=== PATIENT | female | born 1995 ===

== ENCOUNTER → 2020-10-23 12:34 | Outpatient (CLI) | payer OTHER, MEDICAID, SELFPAY ==
[2020-10-23 15:57] LABS: Urine N gonorrhoeae NOT DETECTED
[2020-10-23 16:33] LABS: Urine Chlamydia NOT DETECTED
== END ==
PROVIDERS: Referring Provider Family Medicine; Visit Provider Family Medicine
DX: Z34.02 Encounter for supervision of normal first pregnancy, second trimester (principal)
CPT/HCPCS: 87491; 87591

== ENCOUNTER → 2020-10-23 12:54 | Outpatient (CLI) | payer OTHER, MEDICAID, SELFPAY ==
[2020-10-25 18:24] LABS: AFP, Serum 56.1 ng/mL (.); Calc Gestational Age Ultrasound (.); Estriol, Free 2.87 ng/mL (.); Inhibin A, Dimeric 196.16 pg/mL (.); Maternal Ethnicity Other (.); Maternal Weight 169 lbs (.); Results Report (.); hCG, Serum 17238 mIU/mL (.)
[2020-11-05 12:52] LABS: Test Results See interpretation. (.)
[2020-11-05 12:56] LABS: hCG, MoM 0.73
[2020-11-05 12:58] LABS: Inhibin A, MoM 1.27
[2020-11-05 12:59] LABS: OSBR Risk 1 IN 6704
[2020-11-05 13:01] LABS: Number of Fetuses 1
== END ==
PROVIDERS: PCP Family Medicine; Referring Provider Family Medicine; Visit Provider Family Medicine
DX: Z34.02 Encounter for supervision of normal first pregnancy, second trimester (principal); Z3A.18 18 weeks gestation of pregnancy
CPT/HCPCS: 36415; 82105; 82677; 84702; 86336; 87491; 87591

== ENCOUNTER → 2020-10-24 16:58 | Outpatient (CLI) | payer OTHER, MEDICAID, SELFPAY ==
[2020-10-24 18:03] LABS: Appearance Urine UA CLEAR; Bilirubin Urine UA NEGATIVE (NEGATIVE); Color Urine UA YELLOW; Glucose Urine UA TRACE g/dL (Negative); Ketones Urine UA NEGATIVE (NEGATIVE); Leukocyte Esterase Urine UA NEGATIVE (NEGATIVE); Nitrite Urine UA NEGATIVE (Negative); Occult Blood Urine UA TRACE-LYSED (Negative); Protein Urine UA NEGATIVE (Negative); Specific Gravity Urine UA <=1.005 (1.000-1.035); Urobilinogen Urine UA 0.2 E.U./dL (0.2)
[2020-10-24 18:07] LABS: pH Urine UA 6.5 (4.5-8.0)
[2020-10-24 18:12] LABS: Bacteria Urine Few (2-10); Culture Indicated Urine Cult Not Indicated; RBC Urine 0-1/HPF (0-5/HPF); Squamous Epithelial Cell Urine 1-5 /HPF (0-5/HPF); WBC Urine 0-1/HPF (0-5/HPF)
== END ==
PROVIDERS: PCP Family Medicine; Referring Provider Family Medicine; Visit Provider Family Medicine
DX: N39.0 Urinary tract infection, site not specified (principal)
CPT/HCPCS: 81001

== ENCOUNTER → 2020-11-06 14:17 | Outpatient (CLI) | payer OTHER, MEDICAID, SELFPAY ==
--- NOTE | 2020-11-06 14:18 | DI.US.S_ITS ---
PROCEDURE: US OB >= 14 WEEKS FETUS INDICATIONS: ANATOMY OUTSIDE/PRIOR DATING DATA: First dating scan (date and location): November 06, 2020 . Estimated date of delivery (SHARONA) from first dating scan: March 14, 2021 . TECHNIQUE: Real-time scanning was performed of the fetus, with image documentation and biometric measurements. Endovaginal scanning: Not performed COMPARISON: None. FINDINGS: General: A single living intrauterine gestation is present. Presentation: Breech. Placenta: Placental position is right fundal , without previa. Amniotic fluid index: Four-quadrant LYNDON appears visibly adequate with largest vertical pocket measuring 5.1 cm. heart rate: 153 beats per minute. Maternal cervical canal: 3.0 cm long. Normal lower limit is 2.5 cm. biometrics: Biparietal diameter: 5.4 cm, correlating with 22 weeks and 3 days Head circumference: 19.6 cm, correlating with 21 weeks and 5 days Abdominal circumference: 17.0 cm, correlating with 22 weeks and 0 days Femur length: 3.4 cm, correlating with 20 weeks and 4 days Estimated gestational age from initial scan: not applicable. Composite gestational age from present scan: 21 weeks and 5 days Estimated weight and percentile: 424 g . Estimated weight percentile not calculated. Measurement variability for biometric dating: +/- 7 days from 14 weeks to 15 weeks 6 days gestation, +/- 10 days from 16 weeks to 21 weeks 6 days gestation, +/- 2 weeks from 22 weeks to 27 weeks 6 days gestation, +/- 3 weeks for 28 weeks gestation or later. weight reference: 4500 g or EFW >90/95% is considered macrosomia or large for gestational age. EFW <10% is small for gestational age. EFW 5% or less is considered intra-uterine growth restriction. Anatomic survey: Neuro: Ventricles are non-dilated at less than 10 mm. Cisterna magna is normal at 3-11 mm. Cerebellum is normal in size and morphology. Nuchal skin fold: Normal at less than 6 mm between 14-21 weeks gestational age. Face: Nose and lips, facial profile are normal. Spine: No evidence for spina bifida. Heart: 4-chambered heart is present, with normal ventricular outflow tracts. Incidental note of a 1.5 mm echogenic focus within the left ventricle. Diaphragm: Diaphragm is intact. Stomach: Left-sided stomach is present. Kidneys: No hydronephrosis. Normal is less than 5 mm in 2nd trimester, less than 7 mm in 3rd trimester. Cord: 3-vessel cord has orthotopic insertion. Bladder: Normal in size. Extremities: All 4 extremities identified. IMPRESSION: 1. Single living intrauterine gestation with an estimated sonographic gestational age of approximately 21 weeks and 5 days. This correlates with a estimated dated delivery of approximately March 14, 2021. 2. Small echogenic focus identified within the left ventricle which is a nonspecific finding and can be seen in to 20% of normal fetuses. This likely represents the normal papillary muscle or cordae tendineae. Recommend correlation with maternal risk factors and further evaluation as clinically appropriate. Otherwise, unremarkable routine second trimester anatomic screening survey. Dictated by: Sedrick Ojeda M.D. on 11/06/2020 at 16:30 Approved by: Sedrick Ojeda M.D. on 11/06/2020 at 16:38
== END ==
PROVIDERS: PCP Family Medicine; Referring Provider Family Medicine; Visit Provider Family Medicine
DX: Z3A.21 21 weeks gestation of pregnancy (principal)
CPT/HCPCS: 76811

== ENCOUNTER → 2021-01-01 15:34 | Outpatient (CLI) | payer OTHER, MEDICAID, SELFPAY ==
[2021-01-01 16:24] LABS: Bilirubin Urine UA NEGATIVE (NEGATIVE); Color Urine UA YELLOW; Glucose Urine UA TRACE g/dL (Negative); Ketones Urine UA NEGATIVE (NEGATIVE); Leukocyte Esterase Urine UA NEGATIVE (NEGATIVE); Nitrite Urine UA NEGATIVE (Negative); Occult Blood Urine UA 1+ (Negative); Protein Urine UA TRACE (Negative); Urobilinogen Urine UA 0.2 E.U./dL (0.2)
[2021-01-01 16:46] LABS: Creatinine Urine Random 98.1 mg/dL; Protein (Total) Urine Random 27 mg/dL (0-12); Protein Creatinine Ratio Urine 0.27 GRAM/24H
[2021-01-01 16:56] LABS: Appearance Urine UA Slightly Cloudy
[2021-01-01 16:57] LABS: Amorphous Sediment Urine 1+; Bacteria Urine Many (>30); Culture Indicated Urine Specimen Cultured; Mucus Urine 1+ (Negative); RBC Urine 0-1/HPF (0-5/HPF); Squamous Epithelial Cell Urine 1-5 /HPF (0-5/HPF); WBC Urine 1-5/HPF (0-5/HPF)
[2021-01-01 17:15] LABS: Add Manual Diff / Slide Review NO; Basophils Absolute Auto 0 /uL (0-100); Basophils Percent Auto 0.3 % (0-2); Eosinophils Absolute Auto 200 /uL (0-450); Hematocrit 34.2 % (36-46); Hemoglobin 11.6 g/dL (12.0-16.0); Lymphocytes Absolute Auto 2300 /uL (1100-4500); Lymphocytes Percent Auto 25.7 % (25-40); Mean Corpuscular HGB Conc 33.8 % (30-36); Mean Corpuscular Hemoglobin 29.4 PG (26-34); Mean Corpuscular Volume 86.9 fL (80-100); Monocytes Absolute Auto 700 /uL (0-900); Monocytes Percent Auto 8.4 % (3-14); Neutrophils Absolute Auto 5600 /uL (1500-7000); Neutrophils Percent Auto 63.6 % (50-75); Platelet Count 278 X10^3/uL (150-400); Red Blood Cell Count 3.93 X10^6/uL (4.0-5.2); Red Cell Distribution Width 15.5 % (11.6-14.8); White Blood Cell Count 8.8 X10^3/uL (4.5-11.0)
[2021-01-01 17:46] LABS: Alanine Aminotransferase 29 IU/L (<35); Albumin 3.4 g/dL (3.5-5.0); Albumin Globulin Ratio 1.2 (1.0-2.8); Alkaline Phosphatase 87 U/L (38-126); Aspartate Aminotransferase 31 IU/L (14-36); Bilirubin Total 0.2 mg/dL (0.2-1.3); Blood Urea Nitrogen 3 mg/dL (7-17); Calcium 9.4 mg/dL (8.4-10.2); Carbon Dioxide 23 mmol/L (22-32); Chloride 102 mmol/L (98-107); Estimated Glomerular Filt Rate > 60.0 mL/min (>60); GTT (PREG) 1 Hour PP 50gm Dose 204 mg/dL (76-139); Globulin 2.9 g/dL (1.7-4.1); Glucose 204 mg/dL (70-100); HEMOLYSIS < 15 (0-50); Potassium 2.9 mmol/L (3.4-5.1); Sodium 134 mmol/L (137-145); Total Protein 6.3 g/dL (6.3-8.2)
== END ==
PROVIDERS: PCP Family Medicine; Referring Provider Family Medicine; Visit Provider Family Medicine
DX: O13.9 Gestational [pregnancy-induced] hypertension without significant proteinuria, unspecified trimester (principal); Z3A.26 26 weeks gestation of pregnancy
CPT/HCPCS: 36415; 80053; 81001; 82570; 82950; 84156; 85025; 87077; 87086; 87186

== ENCOUNTER → 2021-01-13 15:37 | Outpatient (CLI) | payer OTHER, MEDICAID, SELFPAY | PROVIDERS: PCP Family Medicine; Referring Provider Family Medicine; Visit Provider Family Medicine | DX: O23.40 Unspecified infection of urinary tract in pregnancy, unspecified trimester (principal) | CPT/HCPCS: 82948; 87077; 87086; 87186 ==

== ENCOUNTER → 2021-01-29 15:38 | Outpatient (CLI) | payer OTHER, MEDICAID, SELFPAY ==
[2021-01-29 16:09] LABS: Add Manual Diff / Slide Review NO; Basophils Absolute Auto 0 /uL (0-100); Basophils Percent Auto 0.3 % (0-2); Eosinophils Absolute Auto 200 /uL (0-450); Eosinophils Percent Auto 2.1 % (2-4); Hematocrit 33.8 % (36-46); Hemoglobin 11.4 g/dL (12.0-16.0); Lymphocytes Absolute Auto 2500 /uL (1100-4500); Lymphocytes Percent Auto 31.2 % (25-40); Mean Corpuscular HGB Conc 33.8 % (30-36); Mean Corpuscular Hemoglobin 29.2 PG (26-34); Mean Corpuscular Volume 86.5 fL (80-100); Monocytes Absolute Auto 800 /uL (0-900); Monocytes Percent Auto 10.1 % (3-14); Neutrophils Absolute Auto 4600 /uL (1500-7000); Neutrophils Percent Auto 56.3 % (50-75); Platelet Count 252 X10^3/uL (150-400); Red Blood Cell Count 3.91 X10^6/uL (4.0-5.2); Red Cell Distribution Width 16.3 % (11.6-14.8); White Blood Cell Count 8.2 X10^3/uL (4.5-11.0)
[2021-01-29 16:20] LABS: Alanine Aminotransferase 36 IU/L (<35); Albumin 3.5 g/dL (3.5-5.0); Albumin Globulin Ratio 1.1 (1.0-2.8); Alkaline Phosphatase 110 U/L (38-126); Aspartate Aminotransferase 35 IU/L (14-36); BUN Creatinine Ratio 6.3 (6-22); Bilirubin Total 0.2 mg/dL (0.2-1.3); Blood Urea Nitrogen 4 mg/dL (7-17); Calcium 9.3 mg/dL (8.4-10.2); Carbon Dioxide 24 mmol/L (22-32); Chloride 105 mmol/L (98-107); Estimated Glomerular Filt Rate > 60.0 mL/min (>60); Globulin 3.2 g/dL (1.7-4.1); Glucose 90 mg/dL (70-100); HEMOLYSIS < 15 (0-50); Potassium 3.2 mmol/L (3.4-5.1); Sodium 137 mmol/L (137-145); Total Protein 6.7 g/dL (6.3-8.2)
[2021-01-29 16:29] LABS: Appearance Urine UA CLEAR; Bilirubin Urine UA NEGATIVE (NEGATIVE); Color Urine UA YELLOW; Glucose Urine UA NEGATIVE (Negative); Ketones Urine UA NEGATIVE (NEGATIVE); Leukocyte Esterase Urine UA NEGATIVE (NEGATIVE); Nitrite Urine UA NEGATIVE (Negative); Occult Blood Urine UA TRACE-LYSED (Negative); Protein Urine UA TRACE (Negative); Urobilinogen Urine UA 0.2 E.U./dL (0.2)
[2021-01-29 17:33] LABS: Creatinine Urine Random 89.1 mg/dL; Protein (Total) Urine Random 30 mg/dL (0-12); Protein Creatinine Ratio Urine 0.33 GRAM/24H
[2021-01-29 17:57] LABS: Bacteria Urine None Seen; Culture Indicated Urine Cult Not Indicated; RBC Urine 0-1/HPF (0-5/HPF); Squamous Epithelial Cell Urine 1-5 /HPF (0-5/HPF); WBC Urine 0-1/HPF (0-5/HPF)
== END ==
PROVIDERS: PCP Family Medicine; Referring Provider Family Medicine; Visit Provider Family Medicine
DX: O13.9 Gestational [pregnancy-induced] hypertension without significant proteinuria, unspecified trimester (principal)
CPT/HCPCS: 36415; 80053; 81001; 82570; 84156; 85025

== ENCOUNTER 2021-01-29 16:05 | Outpatient (CLI) | payer OTHER, MEDICAID, SELFPAY ==
--- NOTE | 2021-01-29 | DI.US.S_ITS ---
PROCEDURE: US OB LIMITED INDICATIONS: gestational HTN, gestational DM OUTSIDE/PRIOR DATING DATA: Last menstrual period (LMP): Unknown. LMP-based estimated date of delivery (SHARONA): Not applicable. First dating scan (date and location): 11/06/20. Estimated date of delivery (SHARONA) from first dating scan: 03/14/21. The calculations are made using the 2nd trimester ultrasound derived SHARONA of 03/14/21. TECHNIQUE: Real-time scanning was performed of the fetus, with image documentation. Endovaginal scanning: None COMPARISON: None. FINDINGS: A single living intrauterine gestation is present. Presentation: Cephalic. Placenta: Placental position is right fundal, without previa. Amniotic fluid index: 12.9 cm, normal range is 5-24 cm. Single deepest vertical pocket is 5.4 cm. heart rate: 130 beats per minute. Maternal cervical canal: 3.2 cm long. Normal lower limit is 2.5 cm. Biparietal diameter 8.4 cm, 34 weeks, 0 days Head circumference 30.6 cm, 34 weeks, one day Abdominal circumference 29.7 cm 33 weeks, five days Femur length 6.5 cm, 33 weeks, four days Estimated weight 2259 g, 42nd percentile Previously assigned gestational age 33 weeks, five days Gestational age from today's study 33 weeks, six days IMPRESSION: 1. Single live intrauterine with appropriate growth since the prior study. 2. Amniotic fluid volume within normal limits. 3. Preliminary report conveyed by the manager research development to the ordering provider. Dictated by: Syl Dumont M.D. on 01/29/2021 at 18:19 Approved by: Syl Dumont M.D. on 01/29/2021 at 18:23
--- NOTE | 2021-01-29 17:14 | P.TNLD_ITS ---
Visit Information Visit Information Date of evaluation: 01/29/21 Primary OB Provider: Loretta Taveras Reason for Evaluation: Yes non-stress test non-stress test reason: hypertension/pre-eclampsia Comments/Additional reasons for admission: 25-year-old at 32 weeks and 5 days with elevated blood pressures in clinic. Denies headache, vision changes, edema right upper quadrant pain. further complicated by diet-controlled gestational diabetes. Vital Signs Vital Signs: Blood pressure 126/67, 134/85, 130/69 [facility] Medical History (Updated 01/30/21 @ 07:19 by Loretta Taveras DO) GDM, class A1 Gestational hypertension Family History Mother Hypertension Hyperlipidemia Father No problems noted. Grandmother No problems noted. Grandfather Cancer Grandmother No problems noted. Grandfather No problems noted. Social History marital status: unmarried,living together (Life partner will be moving here from [facility] [address]. ) household members: family (Stays with her cousin. ) lives independently: No caregiver/support person: No housing: apartment pets and animals: No education level: college (Some college courses. ) occupational status: employed ([employer]. ) current occupational exposures/hazards: No jessica/gnosticism: Caodaism special jessica needs: No seatbelt use: always do you feel safe at home: Yes Smoking Status: Never smoker second hand exposure: No alcohol intake: former (Pre-: weekends or days off only. ) substance use type: does not use during the past year weight has: remained stable well-balanced diet: about half the time (Encouraged online nutrition class. ) daily servings fruits/ve-4 caffeine: No (Rare soda. ) Type(s) of exercise: walking (Constant during 8 hr shift. ) and normal ROM and activity frequency: daily duration: other Objective Imaging US - abdomen: Radiologist's impression: PROCEDURE:? US OB LIMITED ? INDICATIONS:? gestational HTN, gestational DM ? OUTSIDE/PRIOR DATING DATA:? Last menstrual period (LMP):? Unknown.? LMP-based estimated date of delivery (SHARONA):? Not applicable.? First dating scan (date and location):? 11/06/20.? Estimated date of delivery (SHARONA) from first dating scan:? 03/14/21. The calculations are made using the 2nd trimester ultrasound derived SHARONA of 03/14/21.? ? TECHNIQUE: Real-time scanning was performed of the fetus, with image documentation.? Endovaginal scanning:? None ? COMPARISON:? None. ? FINDINGS:? A single living intrauterine gestation is present.? Presentation:? Cephalic.? Placenta:? Placental position is right fundal, without previa.? Amniotic fluid index:? 12.9 cm, normal range is 5-24 cm. Single deepest vertical pocket is 5.4 cm.? ? heart rate:? 130 beats per minute.? Maternal cervical canal:? 3.2 cm long.? Normal lower limit is 2.5 cm. Biparietal diameter 8.4 cm, 34 weeks, 0 days Head circumference 30.6 cm, 34 weeks, one day Abdominal circumference 29.7 cm 33 weeks, five days Femur length 6.5 cm, 33 weeks, four days Estimated weight 2259 g, 42nd percentile Previously assigned gestational age 33 weeks, five days Gestational age from today's study 33 weeks, six days ? ? IMPRESSION:? 1. Single live intrauterine with appropriate growth since the prior study. 2. Amniotic fluid volume within normal limits. 3. Preliminary report conveyed by the recruiting specialist to the ordering provider. ? ? Dictated by: Syl Dumont M.D. on 01/29/2021 at 18:19 ? ? Approved by: Syl Dumont M.D. on 01/29/2021 at 18:23 ? Evaluation Evaluation Baseline heart rate: 140 Variability: Moderate (11-25) monitor accelerations: Present Monitor Decelerations: Absent Category of Tracing: Reactive Diagnosis, Plan/Disposition Final Diagnosis (1) Gestational hypertension: Status: Acute (2) GDM, class A1: Status: Acute (3) 32 weeks gestation of : Status: Acute Plan/Disposition Plan: 25-year-old at 32 weeks and 5 days gestation with gestational hypertension and well controlled GDM A1. All blood pressures normal in the center and she is asymptomatic. CBC and CMP normal today however urine protein creatinine ratio returned at 0.33. Patient has a container for a 24 hour urine that she needs to complete. EFW today was 42nd percentile and LYNDON 12.9. Will plan for twice weekly NST and weekly LYNDON. Referral placed to maternal medicine for recommendations for her . OB Disposition: home
== END 2021-01-29 17:49 | disposition home or self-care (01) ==
LOC: OB 01-30 14:05
PROVIDERS: PCP Family Medicine; Referring Provider Family Medicine; Visit Provider Family Medicine
DX: O13.3 Gestational [pregnancy-induced] hypertension without significant proteinuria, third trimester (principal); O24.410 Gestational diabetes mellitus in pregnancy, diet controlled; Z3A.32 32 weeks gestation of pregnancy
CPT/HCPCS: 36415; 59025; 76815; 80053; 81001; 82570; 84156; 85025; G0378; G0379

== ENCOUNTER → 2021-02-10 14:40 | Outpatient (CLI) | payer OTHER, MEDICAID, SELFPAY ==
[2021-02-10 16:24] LABS: Collection Time Urine 24 Hours; Protein (Total) Urine Random 41 mg/dL (0-12); Total Protein 24 Hour Urine 574 mg/day (42-225); Total Volume Urine 1400 mL
== END ==
PROVIDERS: PCP Family Medicine; Referring Provider Family Medicine; Visit Provider Family Medicine
DX: O13.9 Gestational [pregnancy-induced] hypertension without significant proteinuria, unspecified trimester (principal)
CPT/HCPCS: 84156

== ENCOUNTER → 2021-02-27 10:25 | Outpatient (CLI) | payer OTHER, MEDICAID, SELFPAY ==
[2021-02-27 19:07] LABS: Strep Grp B PCR NEG for Grp B Strep
== END ==
PROVIDERS: PCP Family Medicine; Visit Provider Family Medicine
DX: Z3A.36 36 weeks gestation of pregnancy (principal)
CPT/HCPCS: 87081; 87653

== ENCOUNTER 2021-02-27 11:29 | Inpatient (IN) | payer OTHER, MEDICAID, SELFPAY ==
--- NOTE | 2021-02-27 11:37 | DI.US.S_ITS ---
PROCEDURE: US OB LIMITED INDICATIONS: PRE-ECLAMPSIA. GROWTH AND BIOPHYSICAL. OUTSIDE/PRIOR DATING DATA: Last menstrual period (LMP): Unknown LMP-based estimated date of delivery (SHARONA): Unknown First dating scan (date and location): 11/06/2020 Estimated date of delivery (SHARONA) from first dating scan: 03/14/2021. TECHNIQUE: Real-time scanning was performed of the fetus, with image documentation and biometric measurements. Biophysical profile was also obtained. The COMPARISON: [facility], OB LIMITED, 01/29/2021, 17:24. FINDINGS: General: A single living intrauterine gestation is present. Presentation: Vertex Placenta: Placental position is right fundal, without previa. Amniotic fluid index: 7 cm, normal range is 5-24 cm. Single deepest vertical pocket is 4.9 cm. heart rate: 137 beats per minute. Maternal cervical canal: Not well seen. biometrics: Biparietal diameter: 8.9 cm, 36 weeks, 1 day Head circumference: 33.2 cm, 37 weeks, 6 days Abdominal circumference: 35.0 cm, 38 weeks, 6 days Femur length: 7.1 cm, 36 weeks, 2 days. Clinically estimated gestational age: 37 weeks, 6 days Composite gestational age from present scan: 37 weeks, 2 days Estimated weight and percentile: 3322 g, 61% Biophysical profile: Tone: 2 points. Movement: 2 points. Respiration: 2 points. Largest pocket of fluid: 2 points. IMPRESSION: 1. Single live intrauterine with fetus in vertex presentation. heart rate is 137 beats per minute. Normal amount of amniotic fluid. Normal growth with estimated weight at 61st percentile. 2. biophysical profile score is 8/8. We strive to produce accurate, complete, and clear reports of imaging services. To assist us in improving patient care, this report was composed using standard report templates and voice recognition software. Therefore, it may contain abnormal punctuation, insertions and/or omissions. Occasional wrong-word or sound-alike substitutions may occur. Though we review the report and make efforts to correct it, we do recommend that the report be read carefully in proper context to recognize any text inaccuracies. Dictated by: Ayo Espinoza M.D. on 02/27/2021 at 12:42 Approved by: Ayo Espinoza M.D. on 02/27/2021 at 12:49
[2021-02-27 12:00] LABS: Add Manual Diff / Slide Review NO; Basophils Absolute Auto 0 /uL (0-100); Basophils Percent Auto 0.4 % (0-2); Eosinophils Absolute Auto 100 /uL (0-450); Eosinophils Percent Auto 1.6 % (2-4); Hematocrit 33.1 % (36-46); Lymphocytes Absolute Auto 2400 /uL (1100-4500); Lymphocytes Percent Auto 31.3 % (25-40); Mean Corpuscular HGB Conc 33.3 % (30-36); Mean Corpuscular Hemoglobin 27.9 PG (26-34); Mean Corpuscular Volume 83.8 fL (80-100); Monocytes Absolute Auto 700 /uL (0-900); Monocytes Percent Auto 8.6 % (3-14); Neutrophils Absolute Auto 4500 /uL (1500-7000); Neutrophils Percent Auto 58.1 % (50-75); Platelet Count 259 X10^3/uL (150-400); Red Blood Cell Count 3.96 X10^6/uL (4.0-5.2); Red Cell Distribution Width 16.6 % (11.6-14.8); White Blood Cell Count 7.7 X10^3/uL (4.5-11.0)
[2021-02-27 12:24] LABS: Alanine Aminotransferase 39 IU/L (<35); Albumin 3.3 g/dL (3.5-5.0); Albumin Globulin Ratio 1.1 (1.0-2.8); Alkaline Phosphatase 139 U/L (38-126); Aspartate Aminotransferase 45 IU/L (14-36); BUN Creatinine Ratio 7.8 (6-22); Bilirubin Total 0.3 mg/dL (0.2-1.3); Blood Urea Nitrogen 4 mg/dL (7-17); Calcium 9.3 mg/dL (8.4-10.2); Carbon Dioxide 24 mmol/L (22-32); Chloride 106 mmol/L (98-107); Estimated Glomerular Filt Rate > 60.0 mL/min (>60); Globulin 3.1 g/dL (1.7-4.1); Glucose 93 mg/dL (70-100); HEMOLYSIS 24 (0-50); Potassium 3.5 mmol/L (3.4-5.1); Sodium 136 mmol/L (137-145); Total Protein 6.4 g/dL (6.3-8.2)
--- NOTE | 2021-02-27 13:05 | PM.OBHP.IH.1 ---
OB HPI Date/Time Date of admission: 02/27/21 Date Patient Seen: 02/27/21 Time Patient Seen: 12:50 History of Present Condition Chief complaint: SHARONA Calculator Estimated Delivery Date Method Current WG Current Estimate 03/18/21 LMP (Uncertain) 37w 2d Other Estimates 03/21/21 Ultrasound #1 36w 6d : 1 Para: 0 Narrative: 25-year-old at 37 weeks and 2 days by LMP confirmed with first-trimester ultrasound. Care has been a bit fragmented. She had a lapse in care from 32-37 weeks due to phone issues. She was found to meet criteria for preeclampsia by blood pressure and elevated 24 hour urine at 34 weeks but did not follow-up in clinic or for testing. Today she presented to clinic after a welfare check by police at home. Initial blood pressure in clinic was markedly elevated and she was sent to the center. She denies headaches, vision changes or right upper quadrant pain. She has had swelling in her legs. Reports good movement and denies leaking or bleeding. She was diagnosed with gestational diabetes after 1 hour GTT of 204. Blood sugars reportedly have been in the 80s fasting and 140s to 150s postprandial however she has not been seen for the last month in clinic. also complicated by shingles at 26 weeks treated with Valtrex. She also had a UTI then reacted to Keflex so did not complete treatment. UTI was later treated with nitrofurantoin but she was not seen in follow-up for test of care. care: limited care, initiated at week # (18), number of visits (7) and pounds weight gain (67) Dating criteria OB: LMP confirmed by 1st trimester US Ultrasounds: normal 1st trimester US and normal mid trimester US Obstetrical complications: gestational diabetes and preeclampsia Indications Indication for induction OB: gestational HTN/pre-eclampsia Preadmission Labs Last OB Lab Results: Blood Type O Positive 02/27/21 13:40 02/27/21 Antibody Screen Negative 02/27/21 13:40 02/27/21 Hematocrit 33.1 % (36-46) L 02/27/21 11:50 02/27/21 Hemoglobin 11.0 g/dL (12.0-16.0) L 02/27/21 11:50 02/27/21 Glucose 1 Hour 204 mg/dL (76-139) H 01/01/21 15:46 01/01/21 Group B Streptococcus (PCR) Pending 02/27/21 10:25 02/27/21 -: Chlamydia screen: negative, Gonorrhea screen: negative and Urine: positive (E coli) Genetic Screens: Quad screen: Normal External Labs -: Urine: positive (E coli) Evaluation Evaluation Baseline heart rate: 135 Variability: Moderate (11-25) monitor accelerations: Present Monitor Decelerations: Absent Contraction Frequency (minutes): 5 Status: Category l Dilation (cm): 1 Effacement (%): 25 Dilation: 1-2 cm Effacement: 0-30% station: -3 Position of cervix: mid Consistency: medium Rodriguez score: 3 PFSH Medical History GDM, class A1 Gestational hypertension Family History Mother Hypertension Hyperlipidemia Father No problems noted. Grandmother No problems noted. Grandfather Cancer Grandmother No problems noted. Grandfather No problems noted. Social History marital status: unmarried,living together (Life partner will be moving here from [facility]. ) household members: family (Stays with her cousin. ) lives independently: No caregiver/support person: No housing: apartment pets and animals: No education level: college (Some college courses. ) occupational status: employed ([employer]. ) current occupational exposures/hazards: No jessica/uatsdin: Orthodoxy special jessica needs: No seatbelt use: always do you feel safe at home: Yes Smoking Status: Never smoker second hand exposure: No alcohol intake: former (Pre-: weekends or days off only. ) substance use type: does not use during the past year weight has: remained stable well-balanced diet: about half the time (Encouraged online nutrition class. ) daily servings fruits/ve-4 caffeine: No (Rare soda. ) Type(s) of exercise: walking (Constant during 8 hr shift. ) and normal ROM and activity frequency: daily duration: other Meds Home Medications and Allergies Home Medications Medication Instructions Recorded Confirmed Type prenat.vits,jessica,gox-xnij-amyab 1 tab PO DAILY 10/22/20 10/23/20 History pyridoxine (vitamin B6) 100 mg 50 mg PO ONCE 10/22/20 10/23/20 History tablet blood sugar diagnostic (Blood #100 ea 01/14/21 Rx Glucose Test) blood-glucose meter (Blood Glucose #1 ea 01/14/21 Rx Monitoring) nitrofurantoin macrocrystal 100 mg 100 mg PO BID #14 cap 01/20/21 01/20/21 Rx capsule lancets #100 ea 01/22/21 Rx Allergies Allergy/AdvReac Type Severity Reaction Status Date / Time cephalexin [From Keflex] Allergy Intermediate Rash Verified 10/23/20 12:05 Review of Systems Review of Systems ROS: Yes All systems reviewed with the patient and are negative except as otherwise documented OB Exam Narrative Exam Narrative: T 36.1 Initial BP 160s/90-100s, down to 140/80s after nifedipine 10 mg HENMT Head: normal to inspection Mouth: oral mucosae normal Eyes General: appearance normal, both eyes and all related structures Resp Effort & Inspection: normal respiratory effort Cardio Rate: regular rate Extremities Lower extremity: Yes edema DTR's: Rt Patellar: 3+ and Lt Patellar: 3+ Presentation: vertex Estimated Weight (lbs): 7 Objective Labs Result Diagrams: 02/27/21 11:50 02/27/21 11:50 Labs: Laboratory Results - last 24 hr 02/27/21 02/27/21 11:50 11:50 WBC 7.7 RBC 3.96 L Hgb 11.0 L Hct 33.1 L MCV 83.8 MCH 27.9 MCHC 33.3 RDW 16.6 H Plt Count 259 Neut % (Auto) 58.1 Lymph % (Auto) 31.3 [place] % (Auto) 8.6 Eos % (Auto) 1.6 L Baso % (Auto) 0.4 Neut # (Auto) 4500 Lymph # (Auto) 2400 [place] # (Auto) 700 Eos # (Auto) 100 Baso # (Auto) 0 Sodium 136 L Potassium 3.5 Chloride 106 Carbon Dioxide 24 BUN 4 L Creatinine 0.51 L Estimated GFR > 60.0 BUN/Creatinine Ratio 7.8 Glucose 93 Calcium 9.3 Total Bilirubin 0.3 AST 45 H ALT 39 H Alkaline Phosphatase 139 H Total Protein 6.4 Albumin 3.3 L Globulin 3.1 Albumin/Globulin Ratio 1.1 Assessment and Plan Assessment and Plan Assessment and Plan narrative: 25-year-old at 37 weeks and 2 days with preeclampsia without severe features. Diagnosis made by hypertension in third trimester and elevated 24 hour urine protein. She had a lapse in care from 32 weeks until now due to phone issues per patient. She also has gestational diabetes with unknown control given lapse in care. Per patient fasting sugars in the 80s and postprandials generally 140s or lower. Recommended induction now due to pre-eclampsia without severe features. BP improved nicely after one dose of nifedipine 10 mg. Will start labetalol 100 mg BID. Care discussed with Dr. Jacobs. Will hold off on magnesium for now and monitor for development of severe features. Plan for Cervidil followed by pitocin. Epidural upon request. Patient was incidentally found to be COVID positive on admission screening. She is asymptomatic. Discussed masking when and in close contact with .
[2021-02-27] MEDS: NIFEdipine 10 MG CAPSULE PO (13:28)
[2021-02-27 14:13] LABS: COVID19 -Nasal RAPID POSITIVE (Negative)
[2021-02-27] MEDS: DINOPROSTONE VAG (CERVIDIL) 10 MG VAG (15:35)
[2021-02-27 18:33] VITALS: BP 130/94
[2021-02-27] MEDS: LACTATED RINGERS 1,000 ML 100 ML IV (18:50)
[2021-02-27 19:04] VITALS: BP 142/85; PULSE 92
[2021-02-27] MEDS: LABETALOL 100 MG TABLET PO (19:04)
[2021-02-27 19:30] VITALS: BP 160/77; PULSE 104
[2021-02-27] MEDS: ACETAMINOPHEN 325 MG TABLET 650 MG PO (20:18)
[2021-02-28 06:14] LABS: Add Manual Diff / Slide Review NO; Basophils Absolute Auto 100 /uL (0-100); Eosinophils Absolute Auto 100 /uL (0-450); Eosinophils Percent Auto 1.5 % (2-4); Hematocrit 33.1 % (36-46); Lymphocytes Absolute Auto 1900 /uL (1100-4500); Mean Corpuscular HGB Conc 33.2 % (30-36); Mean Corpuscular Hemoglobin 27.7 PG (26-34); Mean Corpuscular Volume 83.6 fL (80-100); Monocytes Absolute Auto 900 /uL (0-900); Monocytes Percent Auto 9.8 % (3-14); Neutrophils Absolute Auto 6000 /uL (1500-7000); Neutrophils Percent Auto 66.7 % (50-75); Platelet Count 261 X10^3/uL (150-400); Red Blood Cell Count 3.96 X10^6/uL (4.0-5.2); Red Cell Distribution Width 16.7 % (11.6-14.8)
[2021-02-28 06:26] LABS: Alanine Aminotransferase 38 IU/L (<35); Albumin 3.5 g/dL (3.5-5.0); Alkaline Phosphatase 143 U/L (38-126); Aspartate Aminotransferase 38 IU/L (14-36); BUN Creatinine Ratio 11.9 (6-22); Bilirubin Total 0.3 mg/dL (0.2-1.3); Blood Urea Nitrogen 7 mg/dL (7-17); Calcium 9.4 mg/dL (8.4-10.2); Carbon Dioxide 23 mmol/L (22-32); Chloride 107 mmol/L (98-107); Estimated Glomerular Filt Rate > 60.0 mL/min (>60); Globulin 3.5 g/dL (1.7-4.1); Glucose 95 mg/dL (70-100); HEMOLYSIS < 15 (0-50); Potassium 3.3 mmol/L (3.4-5.1); Sodium 138 mmol/L (137-145)
[2021-02-28] MEDS: OXYTOCIN PREMIX 30 UNIT/500 ML PLAST..BAG IV (08:30)
[2021-02-28 08:45] VITALS: BP 132/89
[2021-02-28] MEDS: LABETALOL 100 MG TABLET PO ×2 (08:45→19:19)
--- NOTE | 2021-02-28 08:45 | PM.OBPNLAB ---
Date/Time Date Patient Seen: 02/28/21 Time Patient Seen: 08:15 Pain Control Pain control: tolerating well Comments: Denies complaints this morning. Denies headaches, abdominal pain or vision changes. Blood pressures overnight were up and down but not requiring additional medication. She was feeling crampy however cramping has subsided somewhat since Cervidil was removed at 3:30 a.m.. Pelvic Exam Dilation (cm): 1 Effacement (%): 70 station: -3 Contractions Monitor mode: External Contraction pattern: Irregular Status status: Category l Heart Rate Baseline: 140 Monitor Accelerations: Present Monitor Decelerations: Absent Monitor Variability: Moderate Assessment and Plan Assessment: induction ongoing Comments: 25-year-old at 37 weeks and 2 days with preeclampsia without severe features. She received Cervidil overnight. Rodriguez score of 6 this morning. She has been judi spontaneously since Cervidil was removed so will do a trial of Pitocin. Epidural upon request. Blood pressure reasonably well controlled with labetalol 100 mg b.i.d.. She has not needed additional medication for severe range pressures. She remains asymptomatic. Transaminases actually improved this morning compared to admission. Fasting blood sugar was 80 today.
--- NOTE | 2021-02-28 12:06 | PM.OBPNLAB ---
Date/Time Date Patient Seen: 02/28/21 Time Patient Seen: 11:30 Pain Control Pain control: tolerating well Comments: She is feeling crampy and rates her pain a 4/10. Pelvic Exam Dilation (cm): 2 Effacement (%): 70 station: -2 Contractions Monitor mode: External Pitocin rate (mU/min): 18 Contraction frequency (min): 3 Contraction pattern: Regular Status status: Category l Heart Rate Baseline: 130 Monitor Accelerations: Present Monitor Decelerations: Absent Monitor Variability: Moderate Assessment and Plan Assessment: induction ongoing Comments: 25-year-old at 37 weeks and 3 days with preeclampsia without severe features. Blood pressure remains stable on labetalol. She is beginning to make progress on Pitocin. Will continue to titrate Pitocin. Dr. Jacobs will be in this afternoon and 3-4 hours and evaluate for possible a ROM. Epidural upon request.
[2021-02-28] MEDS: LACTATED RINGERS 1,000 ML 100 ML IV (15:00)
--- NOTE | 2021-02-28 17:51 | PM.OBPNLAB ---
Date/Time Date Patient Seen: 02/28/21 Time Patient Seen: 17:40 Pelvic Exam Dilation (cm): 2 Effacement (%): 70 station: -2 Amniotic membrane status: Intact Comments: cervix dilated but stiff Contractions Monitor mode: External Pitocin rate (mU/min): 24 Contraction frequency (min): 3 Contraction pattern: Irregular Status status: Category l Heart Rate Baseline: 135 Monitor Accelerations: Present Monitor Decelerations: Absent Monitor Variability: Moderate Assessment and Plan Assessment: induction ongoing Plan: other Comments: Patient has been on pitocin throughout the day with no cervical change, feeling no contractions. Discussed further cervical ripening overnight given that exam gives mackey score of 5-6. For 25mcg vaginal cytotec q4 hrs, discussed starting pitocin again in AM with AROM at that time.
[2021-02-28 19:19] VITALS: BP 136/80
[2021-02-28] MEDS: miSOPROStoL 25 MCG TABLET VAG (21:38)
[2021-03-01] MEDS: miSOPROStoL 25 MCG TABLET VAG ×2 (02:02→06:12)
[2021-03-01 07:32] VITALS: BP 161/85; PULSE 88
[2021-03-01] MEDS: LABETALOL 100 MG TABLET PO (07:32)
--- NOTE | 2021-03-01 08:01 | PM.OBPNLAB ---
Date/Time Date Patient Seen: 03/01/21 Pain Control Pain control: tolerating well Comments: Patient asleep per RN without complaints. Pelvic Exam Amniotic membrane status: Intact Contractions Monitor mode: External Contraction frequency (min): 3 Contraction pattern: Irregular Status status: Category l Heart Rate Baseline: 130 Monitor Accelerations: Present Monitor Decelerations: Absent Monitor Variability: Moderate Assessment and Plan Comments: 25-year-old at 37 weeks and 4 days with preeclampsia without severe features.? Pitocin shut off last night due to lack of cervical change. She received 3 doses of oral Cytotec overnight, last dose at 7:00 a.m.. Blood pressures were creeping to up just prior to 7:00 a.m. labetalol dose but have since improved after labetalol. Exam deferred as patient is sleeping. Will check cervix at 11:00 a.m. which is 4 hours after Cytotec. Hopefully we can start Pitocin and consider artificial rupture membranes. EFM category 1.
[2021-03-01 08:39] VITALS: BP 147/82; PULSE 88
--- NOTE | 2021-03-01 09:27 | PM.OBPNLAB ---
Date/Time Date Patient Seen: 03/01/21 Time Patient Seen: 09:15 Pain Control Pain control: tolerating well Comments: Denies pain, cramping, HAHN, vision changes or RUQ pain. Pelvic Exam Dilation (cm): 2 Effacement (%): 60 station: -2 Amniotic membrane status: Intact Contractions Monitor mode: External Contraction pattern: Irregular Status status: Category l Heart Rate Baseline: 130 Monitor Accelerations: Present Monitor Decelerations: Absent Assessment and Plan Comments: Essentially unchanged cervical exam despite ripening overnight with Cytotec x3. Last Cytotec was 6 AM, not 7 AM. Discussed justin bulb for further ripening with Dr. [place] who will come evaluate patient.
[2021-03-01] MEDS: LACTATED RINGERS 1,000 ML 100 ML IV ×2 (10:45→20:46)
[2021-03-01] MEDS: OXYTOCIN PREMIX 30 UNIT/500 ML PLAST..BAG IV (10:46)
--- NOTE | 2021-03-01 14:51 | P.PNOB_ITS ---
Date/Time Date Patient Seen: 03/01/21 Time Patient Seen: 14:51 Pain Control Comments: Cramping, rates pain 6/10. Interested in epidural but not yet. Pelvic Exam Dilation (cm): 4 Effacement (%): 80 station: -2 Amniotic membrane status: Intact Contractions Monitor mode: External Contraction pattern: Irregular Status status: Category l Heart Rate Baseline: 130 Monitor Accelerations: Present Monitor Decelerations: Absent Monitor Variability: Moderate Assessment and Plan Assessment: induction ongoing Comments: 25-year-old at 37 weeks and 4 days with preeclampsia without severe f eatures.?Conrad bulb placed by Dr. Jacobs this morning, found in vagina on this exam. SVE now /-2. Will titrate pitocin per protocol, evaluate for AROM in 2 hours.
--- NOTE | 2021-03-01 20:34 | PM.OBPNLAB ---
Date/Time Date Patient Seen: 03/01/21 Time Patient Seen: 20:35 Pain Control Pain control: tolerating well Comments: Denies pain but feels cramping. Pain improved after justin bulb fell out. Pelvic Exam Dilation (cm): 4 Effacement (%): 80 station: -3 Amniotic membrane status: Intact Contractions Monitor mode: External Pitocin rate (mU/min): 12 Contraction frequency (min): 3 Contraction pattern: Regular Status status: Category l Heart Rate Baseline: 140 Monitor Accelerations: Present Monitor Decelerations: Absent Monitor Variability: Moderate Assessment and Plan Assessment: induction ongoing Comments: head too high to rupture now. Encouraged her up out of bed to help with descent. Will titrate pitocin per protocol. If not in active labor by 4 AM, will shut off pitocin for 2 hours and restart at 6 AM.
[2021-03-01 20:43] VITALS: BP 145/88; PULSE 97
[2021-03-01] MEDS: LABETALOL 100 MG TABLET 200 MG PO (20:43)
[2021-03-02] MEDS: NIFEdipine 10 MG CAPSULE PO (02:59)
[2021-03-02 06:57] LABS: Add Manual Diff / Slide Review NO; Basophils Absolute Auto 0 /uL (0-100); Basophils Percent Auto 0.5 % (0-2); Eosinophils Absolute Auto 200 /uL (0-450); Eosinophils Percent Auto 3.1 % (2-4); Hematocrit 31.7 % (36-46); Hemoglobin 10.6 g/dL (12.0-16.0); Lymphocytes Absolute Auto 1700 /uL (1100-4500); Lymphocytes Percent Auto 21.5 % (25-40); Mean Corpuscular HGB Conc 33.5 % (30-36); Mean Corpuscular Hemoglobin 28.2 PG (26-34); Mean Corpuscular Volume 84.2 fL (80-100); Monocytes Absolute Auto 900 /uL (0-900); Monocytes Percent Auto 10.8 % (3-14); Neutrophils Absolute Auto 5200 /uL (1500-7000); Neutrophils Percent Auto 64.1 % (50-75); Platelet Count 221 X10^3/uL (150-400); Red Blood Cell Count 3.76 X10^6/uL (4.0-5.2); Red Cell Distribution Width 16.9 % (11.6-14.8); White Blood Cell Count 8.1 X10^3/uL (4.5-11.0)
[2021-03-02 07:05] LABS: Alanine Aminotransferase 36 IU/L (<35); Albumin 3.3 g/dL (3.5-5.0); Alkaline Phosphatase 133 U/L (38-126); Aspartate Aminotransferase 39 IU/L (14-36); BUN Creatinine Ratio 9.8 (6-22); Bilirubin Total 0.3 mg/dL (0.2-1.3); Blood Urea Nitrogen 6 mg/dL (7-17); Calcium 9.1 mg/dL (8.4-10.2); Carbon Dioxide 26 mmol/L (22-32); Chloride 106 mmol/L (98-107); Estimated Glomerular Filt Rate > 60.0 mL/min (>60); Globulin 3.4 g/dL (1.7-4.1); Glucose 93 mg/dL (70-100); HEMOLYSIS < 15 (0-50); Potassium 3.3 mmol/L (3.4-5.1); Sodium 134 mmol/L (137-145); Total Protein 6.7 g/dL (6.3-8.2)
--- NOTE | 2021-03-02 07:29 | PM.OBPNLAB ---
Date/Time Date Patient Seen: 03/02/21 Time Patient Seen: 07:29 Pain Control Pain control: tolerating well Comments: Patient is comfortable. Denies complaints. She was feeling crampy with Pitocin but when Pitocin was shut off the cramps went away. Pelvic Exam Dilation (cm): 4.5 Effacement (%): 80 station: -3 Amniotic membrane status: Intact Contractions Monitor mode: External Contraction pattern: Irregular Status status: Category l Heart Rate Baseline: 130 Monitor Accelerations: Present Monitor Decelerations: Absent Monitor Variability: Moderate Assessment and Plan Assessment: induction ongoing Comments: 25-year-old at 37 weeks and 5 days with preeclampsia without severe features as well as well controlled gestational diabetes. She has now received Cervidil, Cytotec, Conrad bulb and Pitocin but is not yet in active labor. Pitocin was shut off at 4 a.m. to give her a break and was up to 19 milliunits. Blood pressure has been labile and she is receiving labetalol. Denies symptoms of severe preeclampsia. Labs are stable. head remains quite high in the pelvis. Will restart Pitocin now and attempt AROM in a couple hours. Epidural upon request.
[2021-03-02 08:08] VITALS: BP 165/90
[2021-03-02] MEDS: LABETALOL 100 MG TABLET 200 MG PO ×2 (08:08→23:31)
[2021-03-02] MEDS: LACTATED RINGERS 1,000 ML 100 ML IV ×4 (11:27→23:32)
--- NOTE | 2021-03-02 11:44 | PM.OBPNLAB ---
Date/Time Date Patient Seen: 03/02/21 Time Patient Seen: 11:15 Pain Control Pain control: tolerating well Comments: Feeling cramping but not bad. No HAHN, cough seems to be better but she has a little sore throat. Pelvic Exam Dilation (cm): 4.5 Effacement (%): 80 station: -3 Amniotic membrane status: Ruptured (small amount of clear fluid) Contractions Monitor mode: External Contraction frequency (min): 3 Contraction pattern: Irregular Status status: Category l Heart Rate Baseline: 130 Monitor Accelerations: Present Monitor Decelerations: Absent Assessment and Plan Assessment: induction ongoing Comments: AROM with small amount of clear fluid. Will continue to titrate pitocin. Epidural upon request.
[2021-03-02] MEDS: FENT 2MCG/ML BUPIV 0.125% EPI 200 MCG/100 ML PLAST..BAG 6 MCG EPIDURAL (12:09)
--- NOTE | 2021-03-02 12:39 | PM.AN.REGBLK ---
Regional Block Pre-procedure Procedure: Continuous Lumbar Epidural for L&D Attending OB provider: Loretta Taveras PM/ROS narrative: induction for preeclampsia without severe features, GDM, diet controlled. ASA Class: II Labs: Hct 31.7 % (36-46) L 03/02/21 06:45 Plt Count 221 X10^3/uL (150-400) 03/02/21 06:45 Medications: Current Medications Generic Name Dose Route Start Last Admin Trade Name Freq PRN Reason Stop Dose Admin Acetaminophen 650 mg 02/27/21 19:38 02/27/21 20:18 Acetaminophen 325 Mg Tablet PO 650 mg Q4HR PRN Administration Fever/Mild Pain (1-3) Carboprost Tromethamine 250 mcg 02/27/21 13:01 Carboprost 250 Mcg/Ml Ampul IM Q90M PRN Bleeding Diphenhydramine HCl 25 mg 03/02/21 11:49 Diphenhydramine 50 Mg/Ml Vial IV Q10M PRN Pruritis Fentanyl 50 mcg 02/27/21 17:14 Fentanyl 100 Mcg/2 Ml Inj IV Q1H PRN Pain, Severe (7-10) Lactated Ringer's 1,000 mls @ 100 mls/hr 02/27/21 13:15 03/02/21 11:27 Lactated Ringers IV 100 mls/hr CONT RACHEL Administration Oxytocin/Lactated Ringer's 30 unit in 500 mls @ 200 mls/hr 02/27/21 13:01 Oxytocin Premix IV CONT PRN Bleeding Protocol Tranexamic Acid 1,000 mg/ 100 mls @ 200 mls/hr 02/27/21 13:01 Sodium Chloride IV NOW PRN Bleeding Oxytocin/Lactated Ringer's 30 unit in 500 mls @ 3 mls/hr 03/01/21 09:02 03/01/21 10:46 Oxytocin Premix IV 3 milliunit/min TITRATE RACHEL 3 mls/hr Administration Protocol 3 MILLIUNIT/MIN FENT 2MCG/ML BUPIV 0.125% EPI 200 mcg in 100 mls @ 6 mls/hr 03/02/21 12:00 03/02/21 12:09 Fentanyl/Bupiv/Ns 2mcg/Ml - 0.125% EPIDURAL 6 mls/hr CONT RACHEL Administration Labetalol HCl 200 mg 03/01/21 21:00 03/02/21 08:08 Labetalol 100 Mg Tablet PO 200 mg BID RACHEL Administration Methylergonovine Maleate 0.2 mg 02/27/21 13:01 Methylergonovine 0.2 Mg Tablet PO Q6HR PRN Heavy Bleeding Methylergonovine Maleate 0.2 mg 02/27/21 13:01 Methylergonovine 0.2 Mg/Ml Vial IM NOW PRN Bleeding Misoprostol 800 mcg 02/27/21 13:01 Misoprostol 200 Mcg Tablet IA NOW PRN Bleeding Misoprostol 1,000 mcg 02/27/21 13:01 Misoprostol 200 Mcg Tablet IA NOW PRN Bleeding Misoprostol 400 mcg 02/27/21 13:01 Misoprostol 200 Mcg Tablet SL NOW PRN Bleeding Misoprostol 25 mcg 02/28/21 17:51 03/01/21 06:12 Misoprostol 25 Mcg Tablet VAG 25 mcg Q4HR PRN Administration Cervical Ripening Nalbuphine HCl 2.5 mg 03/02/21 11:49 Nalbuphine 20 Mg/Ml Ampul IV Q10M PRN Pruritis Nifedipine 10 mg 02/27/21 13:59 03/02/21 02:59 Nifedipine 10 Mg Capsule PO 10 mg PRN PRN Administration Hypertension Oxytocin 10 unit 02/27/21 13:01 Oxytocin 10 Unit/Ml Vial IM NOW PRN Bleeding Zolpidem Tartrate 5 mg 02/27/21 17:13 Zolpidem 5 Mg Tablet PO BEDTIME PRN Sleep Allergies: Allergies Allergy/AdvReac Type Severity Reaction Status Date / Time cephalexin [From Keflex] Allergy Intermediate Rash Verified 10/23/20 12:05 Procedure Insertion date: 03/02/21 Insertion time: 12:15 Prep/Local: betadine x3 and 1% lidocaine Interspace: L3-4 Patient position: sitting Needle: 18 gauge [employer]maker Grouptead (CSE: 27g Pencan through Hustead, clear CSF, 1mL 0.25% MPF bupiv) Loss of resistance with: saline MOHINI at (cm): 6 Catheter placed at SKIN (cm): 11 Catheter in SPACE (cm): 5 Insertion: No CSF, No Blood, No Paresthesia with insertion, No Paresthesia with injection and No Test dose reaction Initial Medications TEST DOSE time: 12:15 TEST DOSE: 1.5% lidocaine with epinephrine 1:200k (mL): 3 BOLUS DOSE time: 12:27 BOLUS DOSE (mL): 3 BOLUS DOSE med: other (infusate) Infusion INFUSION: 0.125% bupivacaine and with fentanyl 2 mcg/mL Initial rate (mL/hr): 6 Subsequent interventions: bolus 50mcg fentanyl, rate to 10mL/h 1700 To OR Post-procedure Anesthesia time START: 11:53 Anesthesia time END: 19:35 Post-procedure Anesthesia Assessment: Yes CV function: HR/BP stable, Yes Resp function: RR/sat/airway adequate, Yes Mental status appropriate and No Anesthesia complications
--- NOTE | 2021-03-02 15:42 | PM.OBPNLAB ---
Date/Time Date Patient Seen: 03/02/21 Time Patient Seen: 15:15 Pain Control Pain control: tolerating well and epidural Comments: Feeling some pain on her right side with contractions but overall much more comfortable with epidural. Pelvic Exam Dilation (cm): 5 Effacement (%): 90 station: -2 Amniotic membrane status: Ruptured (small amount of clear fluid) Contractions Monitor mode: External Contraction frequency (min): 3 Contraction pattern: Irregular Status status: Category l Heart Rate Baseline: 130 Monitor Accelerations: Present Monitor Decelerations: Absent Monitor Variability: Moderate Assessment and Plan Plan: begin patient augmentation Comments: Cervix remains unchanged despite artificial rupture of membranes. Patient now comfortable with epidural. Due to difficulty monitoring contractions, IUPC was placed. Will recheck for cervical change in 2 hours. Discussed possible need for if not progressing despite adequate contractions.
--- NOTE | 2021-03-02 17:29 | PM.OBPNLAB ---
Date/Time Date Patient Seen: 03/02/21 Time Patient Seen: 17:29 Pain Control Pain control: epidural Pelvic Exam Dilation (cm): 4 Effacement (%): 90 station: -2 Amniotic membrane status: Ruptured (small amount of clear fluid) Contractions Monitor mode: External Pitocin rate (mU/min): 21 Contraction frequency (min): 2 Contraction pattern: Regular Status status: Category l Heart Rate Baseline: 30 Monitor Accelerations: Present Monitor Decelerations: Absent Monitor Variability: Moderate Assessment and Plan Plan: Comments: 25 year old at 37 weeks and 5 days with pre-eclampsia without severe features. IUPC shows adequate contractions however cervical exam unchanged and cervix is beginning to swell. Discussed with patient and partner. They are in agreement for for arrest of labor/failed induction. Discussed risks including bleeding, infection and injury to surrounding organs. She would accept a blood transfusion if needed. Will give cefazolin 2 g and azithromycin 500 mg due to rupture of membranes prior to surgery.
--- NOTE | 2021-03-02 17:35 | PM.PREOP ---
Pre-operative Note COVID-19 COVID-19 status: Positive Result date/Date tested (Pos, Neg/Pending): 02/27/21 Interval Note History & Physical reviewed/Exam performed by Physician: Yes Changes to H&P: No
[2021-03-02] MEDS: CEFAZOLIN 2 GM/20 ML SYRINGE IV (19:50)
--- NOTE | 2021-03-02 19:55 | SUR.OPER ---
Supine on Padded OR bed, head on pillow, safety belt at thigh, arms secured on padded arm boards at <90 degrees abduction. Bump under right buttock. Legs uncrossed with pillow under knees, gel pad to heels, tape over blanket to lower legs.
--- NOTE | 2021-03-02 20:05 | SUR.OPER ---
VIABLE MALE INFANT DELIVERED AT 1904. PLACENTA AND CORD BLOOD TO OB WITH RN.
--- NOTE | 2021-03-02 20:08 | SUR.OPER ---
VIABLE MALE INFANT DELIVERED AT 2003. PLACENTA AND CORD BLOOD TO OB WITH RN.
[2021-03-02 21:05] VITALS: BP 131/86; PULSE 93; RESP 21; O2SAT 99
[2021-03-02 21:10] VITALS: BP 152/95; PULSE 83; RESP 22; O2SAT 98
[2021-03-02 21:15] VITALS: BP 154/99; PULSE 83; RESP 23; O2SAT 98
--- NOTE | 2021-03-02 21:17 | P.OP_ITS ---
Operative Date/Time/Diagnoses Date of procedure: 03/02/21 Time of procedure: 20:00 Pre-op diagnosis: Arrest of first stage of labor Post-op diagnosis: same Procedure & Clinicians Procedure: Primary low transverse section Same procedure as scheduled: Yes Indications: Arrest of first stage of labor Surgeon: Loretta Taveras Helicopter Utility Aircrewman: Karen Ireland Reason for Helicopter Utility Aircrewman: Dr. Ireland was essential to the case for retraction, delivery of , control of bleeding and suturing. Operative Notes Findings: Vigorous male infant, normal uterus, tubes and ovaries Closure Type: primary Specimen(s): cord blood Intraoperative meds administered: Hemabate and Pitocin Estimated Blood Loss (mL): 1,200 Baby 1: Infant Gender: Male Presentation: vertex Position: Occiput Posterior Placental Delivery Description: Spontaneous Cord Vessel Description: 3 Vessels score (1 min): 9 score (5 min): 9 Narrative: The patient was taken to the operating room and moved to the operating room table. She was then placed in the dorsal supine position with a leftward tilt. SCDs applied. She was prepped and draped in the usual sterile fashion. A timeout was performed. After epidural analgesia was found to be adequate, a Pfannenstiel skin incision was made 2 fingerbreadths above the pubic symphysis and carried through to the underlying layer fascia. Bleeding vessels were cauterized. The fascia was nicked in the midline and the incision extended bilaterally with Rodríguez scissors, Dr. Taveras doing the left side and Dr. Ireland doing the right side. The superior aspect of the fascial incision was grasped with a Virginie clamps, elevated, and the underlying rectus muscles dissected off sharply and bluntly. Attention was then turned to the inferior aspect of this incision which in a similar fashion was grasped with a Virginie clamps, elevated, and the underlying rectus muscles dissected off sharply and bluntly. The rectus muscles were in the midline. The peritoneum was entered and dissected bluntly laterally by Dr. Taveras and Dr. Ireland. After entering the peritoneum there was good visualization of the bladder. The bladder blade was inserted. The vesicouterine peritoneum was identified, grasped with the pickup, and entered sharply with the Metzenbaum scissors. This incision was extended bilaterally and the bladder flap was created digitally. The bladder blade was reinserted. The lower uterine segment was incised in a transverse fashion with the scalpel. Upon entering the amniotic sac there was a small amount clear amniotic fluid. Infant was found to be in the direct occiput posterior position. The 's head was delivered by Dr. Ireland. The remainder of the body delivered without difficulty. The cord was double clamped and cut. The was handed off to waiting RN and RT. The uterus was externalized due to low tone. Pitocin given followed by hemabate with improvement in tone. The placenta was delivered with gentle traction. The uterus was cleared of all clots and debris. The uterine incision was repaired with #1 chromic in a running interlocking fashion and a second layer the same suture was used for an imbricating layer. Dr. Ireland placed a figure of 8 with 0 vicryl on the right side of the incision due to bleeding. Hemostasis was achieved. The tubes and ovaries were examined and were found to be normal. The uterus was replaced in the pelvis. The gutters were cleared of all clots and debris. The bladder flap was closed with 2-0 vicryl in a running fashion. The peritoneum was closed using 2-0 Vicryl in a running fashion. The fascia was reapproximated using 0 Vicryl in a running fashion. Subcutaneous layer was copiously irrigated with warm normal saline. 3 simple interrupted sutures of 3-0 Vicryl were placed to reapproximate the subcutaneous layer. The skin was closed with 4-0 undyed Vicryl in a subcuticular fashion. Steri-Strips were placed. An Aquacel dressing was placed. The uterus was expressed of a small amount of old blood. Sponge, lap, and instrument counts were correct. The patient tolerated the procedure well, and was taken to PACU in stable condition. Post-operative Condition: stable Disposition: PACU Aftercare: routine postop
[2021-03-02 21:20] VITALS: BP 150/99; PULSE 86; RESP 23; O2SAT 97
[2021-03-02] MEDS: ACETAMINOPHEN 325 MG TABLET 650 MG PO (23:32)
[2021-03-02] MEDS: KETOROLAC 30 MG/ML VIAL IV (23:32)
[2021-03-03] MEDS: KETOROLAC 30 MG/ML VIAL IV ×2 (05:36→11:49)
[2021-03-03 06:58] LABS: Alanine Aminotransferase 34 IU/L (<35); Albumin 2.9 g/dL (3.5-5.0); Albumin Globulin Ratio 0.9 (1.0-2.8); Alkaline Phosphatase 111 U/L (38-126); Aspartate Aminotransferase 56 IU/L (14-36); BUN Creatinine Ratio 13.2 (6-22); Bilirubin Total 0.3 mg/dL (0.2-1.3); Blood Urea Nitrogen 10 mg/dL (7-17); Calcium 8.7 mg/dL (8.4-10.2); Carbon Dioxide 25 mmol/L (22-32); Chloride 104 mmol/L (98-107); Estimated Glomerular Filt Rate > 60.0 mL/min (>60); Globulin 3.1 g/dL (1.7-4.1); Glucose 77 mg/dL (70-100); HEMOLYSIS < 15 (0-50); Potassium 3.9 mmol/L (3.4-5.1); Sodium 131 mmol/L (137-145)
[2021-03-03 08:38] VITALS: BP 123/109; PULSE 81
[2021-03-03] MEDS: PRENATAL VIT,CALC/IRON/FOLIC 1 TABLET 1 TAB PO (08:38)
[2021-03-03] MEDS: LABETALOL 100 MG TABLET 200 MG PO ×2 (08:38→19:45)
[2021-03-03] MEDS: DOCUSATE 100 MG CAPSULE 200 MG PO (08:41)
[2021-03-03] MEDS: ACETAMINOPHEN 325 MG TABLET 650 MG PO ×3 (08:41→19:45)
[2021-03-03] MEDS: FERROUS SULFATE 325 MG TABLET PO (08:42)
--- NOTE | 2021-03-03 08:46 | PM.OBPN.1 ---
Subjective - OB Subjective Patient comments: no complaints, pain well controlled, tolerating diet and flatus present baby status: doing well and nursing well [place] feeding status: exclusively breast feeding Date Patient Seen: 03/03/21 Time Patient Seen: 08:15 Interval history: Patient denies complaints this morning. Pain well controlled. Vaginal bleeding is moderate. She is ambulating and passing flatus. Tolerating a diet. is going very well. Denies headache right upper quadrant pain. Exam Vital Signs (past 8 hours): - 03/03/21 08:38 Pulse Rate 81 Blood Pressure 123/109 H Oxygen Delivery Method Room Air Narrative Exam Narrative: General: Awake and alert, no acute distress. Sitting u in bed with infant. p HEENT: NCAT, EOMI, moist oral mucosa CV: Regular rate and rhythm, no murmurs, rubs or gallops Lungs: CTAB, no wheezes, rales, or rhonchi Abdomen: Aquacel dressing intact without drainage. Soft, nontender; bowel tones active; uterus firm 1 cm below umbilicus. Extremities: Warm, 1+ edema bilaterally Objective Labs Result Diagrams: 03/03/21 08:15 03/03/21 06:30 Labs: Laboratory Results - last 24 hr 03/03/21 06:30 Sodium 131 L Potassium 3.9 Chloride 104 Carbon Dioxide 25 BUN 10 Creatinine 0.76 Estimated GFR > 60.0 BUN/Creatinine Ratio 13.2 Glucose 77 Calcium 8.7 Total Bilirubin 0.3 AST 56 H ALT 34 Alkaline Phosphatase 111 Total Protein 6.0 L Albumin 2.9 L Globulin 3.1 Albumin/Globulin Ratio 0.9 L Assessment & Plan Assessment and Plan (1) Arrested active labor, delivered, current hospitalization: Status: Acute (2) 37 weeks gestation of : Status: Acute (3) S/P : Status: Acute (4) Pre-eclampsia: Status: Acute (5) GDM, class A1: Status: Acute (6) Acute blood loss anemia: Status: Acute Plan day: 1 plan OB: routine postop care Comments: 25-year-old after primary section for arrest of labor. She was induced for preeclampsia without severe features. further complicated by diet-controlled gestational diabetes and limited care. Blood pressure is well controlled on labetalol. Liver enzymes are stable and labs otherwise normal. She is without symptoms of preeclampsia. Will recheck labs in the morning. She lost more blood than expected during surgery due to low uterine tone. H&H today shows anemia as expected. Will begin iron. Continue routine postop care. She is doing remarkably well given complications. Time Spent With Patient Time: Total time spent is greater than 50% in coordination of care (as documented) at patient's floor/unit and/or counseling patient: Time with patient: less than 15 minutes
[2021-03-03 09:08] LABS: Add Manual Diff / Slide Review NO; Basophils Absolute Auto 0 /uL (0-100); Basophils Percent Auto 0.2 % (0-2); Eosinophils Absolute Auto 100 /uL (0-450); Hematocrit 24.7 % (36-46); Lymphocytes Absolute Auto 2200 /uL (1100-4500); Lymphocytes Percent Auto 16.7 % (25-40); Mean Corpuscular HGB Conc 32.6 % (30-36); Mean Corpuscular Hemoglobin 27.5 PG (26-34); Mean Corpuscular Volume 84.4 fL (80-100); Monocytes Absolute Auto 1000 /uL (0-900); Monocytes Percent Auto 7.8 % (3-14); Neutrophils Absolute Auto 9700 /uL (1500-7000); Neutrophils Percent Auto 74.3 % (50-75); Platelet Count 209 X10^3/uL (150-400); Red Blood Cell Count 2.93 X10^6/uL (4.0-5.2); Red Cell Distribution Width 16.9 % (11.6-14.8); White Blood Cell Count 13.1 X10^3/uL (4.5-11.0)
[2021-03-03] MEDS: IBUPROFEN 600 MG TABLET PO (19:45)
[2021-03-04] MEDS: OXYCODONE IR 5 MG TABLET PO ×2 (02:41→09:32)
[2021-03-04] MEDS: IBUPROFEN 600 MG TABLET PO ×2 (02:41→09:32)
[2021-03-04] MEDS: ACETAMINOPHEN 325 MG TABLET 650 MG PO ×2 (02:42→09:33)
[2021-03-04 07:22] VITALS: BP 129/72; PULSE 86; RESP 20; TEMP 36.6
[2021-03-04 08:14] LABS: Add Manual Diff / Slide Review NO; Basophils Absolute Auto 0 /uL (0-100); Basophils Percent Auto 0.3 % (0-2); Eosinophils Absolute Auto 300 /uL (0-450); Eosinophils Percent Auto 2.3 % (2-4); Hematocrit 25.2 % (36-46); Hemoglobin 8.1 g/dL (12.0-16.0); Lymphocytes Absolute Auto 2800 /uL (1100-4500); Lymphocytes Percent Auto 21.2 % (25-40); Mean Corpuscular HGB Conc 32.3 % (30-36); Mean Corpuscular Hemoglobin 27.8 PG (26-34); Mean Corpuscular Volume 86.2 fL (80-100); Monocytes Absolute Auto 800 /uL (0-900); Monocytes Percent Auto 6.3 % (3-14); Neutrophils Absolute Auto 9200 /uL (1500-7000); Neutrophils Percent Auto 69.9 % (50-75); Platelet Count 241 X10^3/uL (150-400); Red Blood Cell Count 2.92 X10^6/uL (4.0-5.2); Red Cell Distribution Width 17.1 % (11.6-14.8); White Blood Cell Count 13.2 X10^3/uL (4.5-11.0)
[2021-03-04 08:24] LABS: Alanine Aminotransferase 73 IU/L (<35); Albumin 3.1 g/dL (3.5-5.0); Alkaline Phosphatase 115 U/L (38-126); Aspartate Aminotransferase 137 IU/L (14-36); BUN Creatinine Ratio 15.2 (6-22); Bilirubin Total 0.2 mg/dL (0.2-1.3); Blood Urea Nitrogen 10 mg/dL (7-17); Calcium 8.3 mg/dL (8.4-10.2); Carbon Dioxide 25 mmol/L (22-32); Chloride 107 mmol/L (98-107); Estimated Glomerular Filt Rate > 60.0 mL/min (>60); Globulin 3.1 g/dL (1.7-4.1); Glucose 82 mg/dL (70-100); HEMOLYSIS 20 (0-50); Potassium 3.8 mmol/L (3.4-5.1); Sodium 136 mmol/L (137-145); Total Protein 6.2 g/dL (6.3-8.2)
[2021-03-04] MEDS: PRENATAL VIT,CALC/IRON/FOLIC 1 TABLET 1 TAB PO (09:31)
[2021-03-04] MEDS: DOCUSATE 100 MG CAPSULE 200 MG PO (09:32)
[2021-03-04 09:33] VITALS: BP 129/72
[2021-03-04] MEDS: FERROUS SULFATE 325 MG TABLET PO (09:33)
[2021-03-04] MEDS: LABETALOL 100 MG TABLET 200 MG PO (09:33)
--- NOTE | 2021-03-04 10:35 | PM.OBDS.1 ---
Discharge Providers Provider Date of admission: 02/27/21 11:29 Discharge Date: 03/04/21 Primary care physician: Loretta Taveras DO Consults: 03/02/21 21:[address]/Medical Interpreter Routine Comment: Discharge provider: Loretta Taveras DO Summary Hospital Course Date Patient Seen: 03/04/21 Time Patient Seen: 09:30 Diagnoses: 37 weeks of Pre-eclampsia without severe features Failure to progress in labor S/p section Hospital Course: Patient is a 25-year-old G1 now P1 after primary low-transverse on 03/02/21 section for failure to progress in labor. She was admitted on 02/27/21 for induction of labor due to preeclampsia without severe features. Blood pressure reasonably well controlled throughout her admission with labetalol. She incidentally tested positive for COVID 19 on admission then went on to develop mild symptoms of cough and sore throat. She eventually lost her sense of taste and smell. She was never febrile. Induction began with cervical ripening with Cervidil. She then received Pitocin for a day without significant progress so was really ripening with Cytotec. She then went on to receive a Conrad balloon for mechanical cervical ripening followed by Pitocin. Patient finally started progressing after artificial rupture of membranes however did not progress past 4 cm. IUPC was placed demonstrating adequate contractions without cervical change so the decision was made to proceed with primary section. was complicated by bleeding which improved after Pitocin and Hemabate. Infant was vigorous at delivery with Apgars of 9 and 9. course uncomplicated. She was ambulating, voiding, stooling without issue. Breast-feeding was going very well. Pain controlled with ibuprofen, Tylenol and oxycodone. Vaginal bleeding was moderate and decreasing. No issues in the . She was taking iron for acute blood loss anemia from surgery. At the time of discharge her cough remained but was mild. No fevers. She was masking appropriately when and caring for infant. Day of discharge liver enzymes were found to be elevated. This was discussed with Dr. Patiño due to concern for worsening preeclampsia. Blood pressures remained very well controlled in the 120s over 70s and patient was without any symptoms of preeclampsia. Bump in liver enzymes felt to be due to COVID rather than worsening preeclampsia. Patient was advised to monitor blood pressure at home and call if elevated. She will also monitor for symptoms of preeclampsia. She will follow-up in clinic in 2 days with her for a visit and blood pressure will be checked at time. She is scheduled for Aquacel dressing removal in a week. Peripartum Data Delivery Method: Section Procedures: Primary low-transverse section [place] 1: Gender: Male Disposition of : home Discharge Diagnosis (1) Arrested active labor, delivered, current hospitalization: Status: Acute (2) 37 weeks gestation of : Status: Acute (3) S/P : Status: Acute (4) Pre-eclampsia: Status: Acute (5) GDM, class A1: Status: Acute (6) Acute blood loss anemia: Status: Acute Status at Discharge Cognitive/behavioral status at discharge: at baseline, oriented Functional status at discharge: independent ambulation Overall status at discharge: patient is progressing back to baseline Time Spent with Patient Time attestation: Total time spent providing and/or coordinating discharge services: Time spent: Less than 30 minutes Objective Labs Result Diagrams: 03/04/21 07:48 03/04/21 07:48 Labs: Laboratory Results - last 24 hr 03/04/21 03/04/21 07:48 07:48 WBC 13.2 H RBC 2.92 L Hgb 8.1 L Hct 25.2 L MCV 86.2 MCH 27.8 MCHC 32.3 RDW 17.1 H Plt Count 241 Neut % (Auto) 69.9 Lymph % (Auto) 21.2 L [place] % (Auto) 6.3 Eos % (Auto) 2.3 Baso % (Auto) 0.3 Neut # (Auto) 9200 H Lymph # (Auto) 2800 Rush # (Auto) 800 Eos # (Auto) 300 Baso # (Auto) 0 Sodium 136 L Potassium 3.8 Chloride 107 Carbon Dioxide 25 BUN 10 Creatinine 0.66 Estimated GFR > 60.0 BUN/Creatinine Ratio 15.2 Glucose 82 Calcium 8.3 L Total Bilirubin 0.2 AST 137 H ALT 73 H Alkaline Phosphatase 115 Total Protein 6.2 L Albumin 3.1 L Globulin 3.1 Albumin/Globulin Ratio 1.0 Exam Vital Signs (past 8 hours): - 03/04/21 09:33 Blood Pressure 129/72 Oxygen Delivery Method Room Air General: Awake and alert, no acute distress. Sitting u in bed with .? HEENT: NCAT, EOMI, moist oral mucosa CV: Regular rate and rhythm, no murmurs, rubs or gallops Lungs: CTAB, no wheezes, rales, or rhonchi Abdomen:? Aquacel dressing intact without drainage.? Soft, nontender; bowel tones active; uterus firm 1 cm below umbilicus. Extremities: Warm, 1+ edema bilaterally Discharge Plan Discharge Plan Patient Disposition: Home Provider Discharge Comment: Call for headache, fevers, severe pain or BP >140/90 Discharge orders & Medications Prescriptions: New ferrous sulfate 325 mg (65 mg iron) Tablet 325 mg PO DAILY Qty: 30 0RF docusate sodium 100 mg Capsule 200 mg PO DAILY Qty: 30 0RF ibuprofen 600 mg Tablet 600 mg PO Q6H PRN (Reason: Fever/Mild Pain (1-3)) Qty: 30 0RF labetalol 100 mg Tablet 200 mg PO BID Qty: 60 0RF oxycodone 5 mg Tablet 5 mg PO Q4H PRN (Reason: Pain, Moderate (4-6)) Qty: 20 0RF Continued prenat.vits,jessica,[id number] Tablet 1 tab PO DAILY 0RF Discontinued nitrofurantoin macrocrystal 100 mg capsule 100 mg PO BID Qty: 14 0RF Rx Instructions: must administer with a meal/food (DME) blood-glucose meter [Blood Glucose Monitoring] Kit See Rx Instructions .Route Qty: 1 0RF Rx Instructions: As directed (DME) Blood Glucose Test Strip See Rx Instructions .Route Qty: 100 1RF Rx Instructions: check blood sugars fasting and 1 hour postprandial (DME) lancets Mis See Rx Instructions .ROUTE .MEDSUPPLY Qty: 100 11RF Rx Instructions: use to test blood sugar 4 times daily as directed pyridoxine (vitamin B6) 100 mg tablet 50 mg PO ONCE 0RF Follow up/Referrals: Loretta Taveras DO [Primary Care Provider] - 03/09/21 12:00 pm Diet/Activity/Treatments Diet: Diet as Tolerated Skin/Wound/Dressing Care Report to your healthcare provider any signs of infection, such as:: chills, fever, night sweats, increased pain, unusual drainage and unusual redness Visit Report/Discharge Packet Stand Alone Forms: Discharge: Care Visit Report Forms: Patient Portal/API, Stroke Signs & Symptoms Discharge Data Primary Care Provider: Loretta Taveras Discharges patient from system. Discharge Date/Time: 03/04/21 12:10
[2021-03-04] MEDS: MEASLES,MUMPS,RUBELLA VACC/PF 0.5 ML VIAL SUBCUT (11:07)
== END 2021-03-04 12:10 | disposition home or self-care (01) | DRG 540 ==
PROVIDERS: Admitting Provider Family Medicine; PCP Family Medicine; Referring Provider Family Medicine; Visit Provider Family Medicine
PROC: 10D00Z1 Extraction of Products of Conception, Low, Open Approach (ICD-10-PCS; CPT 59514; principal; 2021-03-02 19:00)
DX: O62.1 Secondary uterine inertia (principal); U07.1 COVID-19; O90.81 Anemia of the puerperium; D62 Acute posthemorrhagic anemia; Z3A.37 37 weeks gestation of pregnancy; Z37.0 Single live birth; O75.3 Other infection during labor; N39.0 Urinary tract infection, site not specified; B96.20 Unspecified Escherichia coli [E. coli] as the cause of diseases classified elsewhere; O14.04 Mild to moderate pre-eclampsia, complicating childbirth; O24.420 Gestational diabetes mellitus in childbirth, diet controlled
CPT/HCPCS: 01967; 01968; 36415; 59514; 76815; 80053; 82962; 85025; 86850; 86900; 86901; 87081; 87635; 87653; C9803; G0379; J0690; J1885; J2274; J2590; J3010

== ENCOUNTER → 2021-04-27 15:30 | Outpatient (CLI) | payer OTHER, MEDICAID, SELFPAY | PROVIDERS: PCP Family Medicine; Visit Provider Family Medicine | DX: R31.9 Hematuria, unspecified (principal) | CPT/HCPCS: 81002; 81025; 87077; 87086; 87186 ==

== ENCOUNTER → 2021-06-30 11:47 | Outpatient (CLI) | payer OTHER, MEDICAID, SELFPAY ==
[2021-06-30 12:43] LABS: Add Manual Diff / Slide Review NO; Basophils Absolute Auto 0 /uL (0-100); Basophils Percent Auto 0.4 % (0-2); Eosinophils Absolute Auto 100 /uL (0-450); Eosinophils Percent Auto 1.9 % (2-4); Hematocrit 36.1 % (36-46); Hemoglobin 11.9 g/dL (12.0-16.0); Lymphocytes Absolute Auto 3300 /uL (1100-4500); Lymphocytes Percent Auto 46.1 % (25-40); Mean Corpuscular HGB Conc 32.8 % (30-36); Mean Corpuscular Hemoglobin 25.8 PG (26-34); Mean Corpuscular Volume 78.5 fL (80-100); Monocytes Absolute Auto 400 /uL (0-900); Monocytes Percent Auto 5.5 % (3-14); Neutrophils Absolute Auto 3200 /uL (1500-7000); Neutrophils Percent Auto 46.1 % (50-75); Platelet Count 329 X10^3/uL (150-400); Red Cell Distribution Width 17.5 % (11.6-14.8); White Blood Cell Count 7.1 X10^3/uL (4.5-11.0)
[2021-06-30 12:51] LABS: Hemoglobin A1C% w Est Avg Glu 5.8 % (4.0-6.0)
[2021-06-30 13:04] LABS: Alanine Aminotransferase 58 IU/L (<35); Albumin 4.7 g/dL (3.5-5.0); Albumin Globulin Ratio 1.4 (1.0-2.8); Alkaline Phosphatase 69 U/L (38-126); Aspartate Aminotransferase 43 IU/L (14-36); BUN Creatinine Ratio 11.8 (6-22); Bilirubin Total 0.5 mg/dL (0.2-1.3); Blood Urea Nitrogen 9 mg/dL (7-17); Calcium 9.4 mg/dL (8.4-10.2); Carbon Dioxide 26 mmol/L (22-32); Chloride 102 mmol/L (98-107); Estimated Glomerular Filt Rate > 60 mL/min (>60); Globulin 3.4 g/dL (1.7-4.1); Glucose 99 mg/dL (70-100); HEMOLYSIS < 15 (0-50); Potassium 4.2 mmol/L (3.4-5.1); Sodium 137 mmol/L (137-145); Total Protein 8.1 g/dL (6.3-8.2)
== END ==
PROVIDERS: PCP Family Medicine; Referring Provider Family Medicine; Visit Provider Family Medicine
DX: O24.410 Gestational diabetes mellitus in pregnancy, diet controlled (principal); D64.9 Anemia, unspecified; R74.01 Elevation of levels of liver transaminase levels
CPT/HCPCS: 36415; 80053; 83036; 85025

== ENCOUNTER → 2022-11-23 09:36 | Outpatient (CLI) | payer OTHER, MEDICAID, SELFPAY | PROVIDERS: PCP Family Medicine; Visit Provider Student in an Organized Health Care Education/Training Program | DX: N39.0 Urinary tract infection, site not specified (principal) | CPT/HCPCS: 81002; 87077; 87086; 87186 ==

== ENCOUNTER → 2024-07-03 15:56 | Outpatient (CLI) | payer OTHER, SELFPAY ==
[2024-07-03 16:53] LABS: Add Manual Diff / Slide Review NO; Basophils Absolute Auto 0 /uL (0-100); Basophils Percent Auto 0.6 % (0-2); Eosinophils Absolute Auto 300 /uL (0-450); Eosinophils Percent Auto 3.5 % (2-4); Hematocrit 38.4 % (36-46); Hemoglobin 12.8 g/dL (12.0-16.0); Lymphocytes Absolute Auto 3600 /uL (1100-4500); Lymphocytes Percent Auto 49.6 % (25-40); Mean Corpuscular HGB Conc 33.3 % (30-36); Mean Corpuscular Hemoglobin 29.9 PG (26-34); Mean Corpuscular Volume 89.7 fL (80-100); Monocytes Absolute Auto 400 /uL (0-900); Monocytes Percent Auto 5.2 % (3-14); Neutrophils Absolute Auto 3000 /uL (1500-7000); Neutrophils Percent Auto 41.1 % (50-75); Platelet Count 233 X10^3/uL (150-400); Red Blood Cell Count 4.29 X10^6/uL (4.0-5.2); Red Cell Distribution Width 15.5 % (11.6-14.8); White Blood Cell Count 7.2 X10^3/uL (4.5-11.0)
[2024-07-03 17:22] LABS: Alanine Aminotransferase 56 IU/L (<35); Albumin 4.4 g/dL (3.5-5.0); Albumin Globulin Ratio 1.4 (1.0-2.8); Alkaline Phosphatase 57 U/L (38-126); Aspartate Aminotransferase 38 IU/L (14-36); BUN Creatinine Ratio 11.3 (6-22); Bilirubin Total 0.3 mg/dL (0.2-1.3); Blood Urea Nitrogen 7 mg/dL (7-17); Calcium 9.4 mg/dL (8.4-10.2); Carbon Dioxide 21 mmol/L (22-32); Chloride 104 mmol/L (98-107); Estimated Glomerular Filt Rate > 60 mL/min (>60); Globulin 3.1 g/dL (1.7-4.1); Glucose 133 mg/dL (70-99); HEMOLYSIS < 15 (0-50); Potassium 4.1 mmol/L (3.4-5.1); Sodium 138 mmol/L (137-145); Total Protein 7.5 g/dL (6.3-8.2)
[2024-07-04 08:32] LABS: Appearance Urine UA CLEAR; Bilirubin Urine UA NEGATIVE (NEGATIVE); Color Urine UA YELLOW; Glucose Urine UA TRACE g/dL (Negative); Ketones Urine UA NEGATIVE (NEGATIVE); Leukocyte Esterase Urine UA NEGATIVE (NEGATIVE); Nitrite Urine UA NEGATIVE (Negative); Occult Blood Urine UA 1+ (Negative); Protein Urine UA 1+ (Negative); Specific Gravity Urine UA >=1.030 (1.000-1.035); Urobilinogen Urine UA 0.2 E.U./dL (0.2)
[2024-07-04 08:50] LABS: Bacteria Urine Many (>30); Culture Indicated Urine Cult Not Indicated; RBC Urine None Seen (0-5/HPF); Squamous Epithelial Cell Urine 1-5 /HPF (0-5/HPF); Urine Volume 10mL (spun); WBC Urine 1-5/HPF (0-5/HPF)
== END ==
PROVIDERS: PCP Student in an Organized Health Care Education/Training Program; Referring Provider Student in an Organized Health Care Education/Training Program; Visit Provider Student in an Organized Health Care Education/Training Program
DX: I10 Essential (primary) hypertension (principal); R30.0 Dysuria
CPT/HCPCS: 36415; 80053; 81001; 84443; 85025

== ENCOUNTER → 2024-07-04 14:44 | Outpatient (CLI) | payer OTHER, SELFPAY ==
[2024-07-04 15:01] LABS: Hemoglobin A1C% w Est Avg Glu 5.5 % (4.0-6.0)
== END ==
PROVIDERS: PCP Student in an Organized Health Care Education/Training Program; Visit Provider Student in an Organized Health Care Education/Training Program
DX: R73.9 Hyperglycemia, unspecified (principal); R30.0 Dysuria
CPT/HCPCS: 83036; 87077; 87086; 87186